=== PATIENT | male | born 1935 | race Two or more races ===

== ENCOUNTER 2018-05-30 19:20 | Inpatient (IN) | payer OTHER ==
[~2018-05-30] VITALS: Ht 177.8 cm; Wt 91.6 kg
[2018-05-30 19:41] VITALS: BP 90/60
--- NOTE | 2018-05-30 19:46 | NUR ---
PT WHEELED TO LOBBY BY FAMILY. VSS.
--- NOTE | 2018-05-30 19:51 | NUR ---
PT TO ER BED 1
[2018-05-30] MEDS ORDERED: NACL 0.9% 1,000 ML IV ONE (20:03)
[2018-05-30] MEDS ORDERED: ALBUTEROL SULFATE/IPRATROPIU 3 ML SOL IH ONE (20:05)
[2018-05-30 20:27] LABS: BASOPHILS % (AUTO) 0.4 % (0.0-2.0); EOSINOPHILS # (AUTO) 0.1 K/uL (0-0.4); EOSINOPHILS % (AUTO) 0.8 % (0.0-4.0); HEMATOCRIT 44.1 % (36-52); HEMOGLOBIN 14.8 g/dL (12.0-18.0); LYMPHOCYTES # (AUTO) 1.5 K/uL (2.0-11.5); LYMPHOCYTES % (AUTO) 15.8 % (20.5-51.1); MEAN CORPUSCULAR HEMOGLOBIN 30 pg (27-31); MEAN CORPUSCULAR HGB CONC 34 g/dL (33-37); MEAN CORPUSCULAR VOLUME 88.8 fL (80-94); MONOCYTES # (AUTO) 1.7 K/uL (0.8-1.0); MONOCYTES % (AUTO) 17.5 % (1.7-9.3); NEUTROPHILS # (AUTO) 6.4 K/uL (1.8-7.7); NEUTROPHILS % (AUTO) 65.5 % (42.2-75.2); PLATELET COUNT (AUTO) 290 K/uL (140-450); RED BLOOD CELL COUNT(AUTO) 4.97 MIL/uL (4.20-6.10); RED CELL DISTRIBUTION WIDTH 13.5 % (11.6-13.7); WHITE BLOOD COUNT (AUTO) 9.7 K/uL (4.8-10.8)
--- NOTE | 2018-05-30 20:28 | NUR ---
Influenza swab, called lab for pickup.
[2018-05-30 20:36] LABS: ANION GAP 11.6 (8-16); CARBON DIOXIDE 26.7 mmol/L (21-32); CHLORIDE 103 mmol/L (98-107); CREATININE 1.4 mg/dL (0.7-1.3); GLUCOSE 145 mg/dL (74-106); POTASSIUM 3.3 mmol/L (3.5-5.1); SODIUM SERUM 138 mmol/L (136-145); UREA NITROGEN, BLOOD 14 mg/dL (7-18)
[2018-05-30 20:59] LABS: TOTAL BILIRUBIN 1.4 mg/dL (0.0-1.0)
[2018-05-30 21:00] LABS: ALBUMIN 2.7 g/dL (3.4-5.0); ASPARTATE AMINOTRANSFERASE 17 U/L (15-37); LIPASE 108 U/L (73-393)
[2018-05-30 21:01] LABS: PROTHROMBIN TIME 10.8 secs (10.8-13.4)
[2018-05-30] MEDS ORDERED: NACL 0.9% 2,000 ML IV ONE ×2 (21:05→21:20)
[2018-05-30] MEDS ORDERED: AZITHROMYCIN 500 MG in DEXTROSE 5% 250 ML IV ONE (21:20)
[2018-05-30] MEDS ORDERED: ACETAMINOPHEN 325 MG TAB PO PRN (21:30)
[2018-05-30] MEDS ORDERED: MORPHINE SULFATE 4 MG/ML SYR IVP PRN (21:30)
[2018-05-30] MEDS ORDERED: ZOLPIDEM 5 MG TAB PO PRN (21:30)
[2018-05-30] MEDS ORDERED: DOCUSATE SODIUM 100 MG GELCAP PO PRN (21:30)
[2018-05-30] MEDS ORDERED: HYDROcodone/APAP 5/325 MG 1 TAB TAB PO PRN (21:30)
[2018-05-30] MEDS ORDERED: ONDANSETRON 4 MG/2 ML VIAL IM/IVP PRN (21:30)
[2018-05-30] MEDS ORDERED: LORazepam 2 MG/ML VIAL IM/IVP PRN (21:30)
[2018-05-30] MEDS ORDERED: cefTRIAXone 1,000 MG VIAL ONE (21:35)
[2018-05-30] MEDS ORDERED: AZITHROMYCIN 500 MG INJ VIAL IV ONE (21:35)
[2018-05-30 21:47] LABS: APPEARANCE,URINE HAZY (CLEAR); COLOR,URINE YELLOW (YELLOW); UGLUCOSE NEGATIVE (NEGATIVE)
[2018-05-30] MEDS ORDERED: TAMS0.4C96 PO (21:47)
[2018-05-30] MEDS ORDERED: RIVA15TA1 PO (21:47)
[2018-05-30] MEDS ORDERED: ATOR10TA PO (21:47)
[2018-05-30 21:48] LABS: BILIRUBIN,URINE NEGATIVE (NEGATIVE); BLOOD, URINE TRACE (NEGATIVE); LEUKOCYTE ESTERASE ,URINE NEGATIVE (NEGATIVE); NITRITE, URINE NEGATIVE (NEGATIVE)
[2018-05-30 21:56] LABS: BARBITURATE, URINE NEG. ng/ml (NEG <=200); BENZODIAZEPINE, URINE NEG. ng/mL (NEG <=200); CANNABINOID, URINE NEG. ng/mL (NEG <=50); COCAINE, URINE NEG. ng/mL (NEG <=300); OPIATE, URINE NEG. ng/mL (NEG <=2000); PHENCYCLIDINE SCREEN,URINE NEG. ng/mL (NEG <=25)
[2018-05-30 22:05] LABS: CHOL/HDL RATIO 3.3 (1-4.5); FREE T4 (FREE THYROXINE) 1.19 ng/dL (0.76-1.46); MAGNESIUM 1.8 mg/dL (1.8-2.4); PHOSPHORUS 3.3 mg/dL (2.5-4.9); THYROID STIMULATING HORMONE 2.27 uIU/mL (0.34-3.74)
--- NOTE | 2018-05-30 22:10 | NUR ---
Pt report given to CARRIE. Transfer of care at this time.
[2018-05-30 22:15] VITALS: BP 115/58
--- NOTE | 2018-05-30 22:15 | NUR ---
RECEIVED BEDSIDE REPORT FROM EXTRUDER TENDER. PT IS AWAKE. A&O TO PERSON. ON NC 2L. SPEECH IS SLURRED. RECEIVED HX FROM FAMILY.PT WITH IV ON L AC 20G INFUSING ANTIBIOTIC. SKIN IS INTACT. PER PT EATS REGULAR FOOD AND IS ABLE TO SWALLOW. SHE CHOPS FOOD INTO SMALL BITES. VS ARE STABLE. PT WITH NON PRODUCTIVE COUGH. DX PNA. WILL FOLLOW UP WITH ORDERS. SAFETY MEASURES ARE IN PLACE. CALL LIGHT WITHIN REACH.
[2018-05-30] MEDS: NACL 0.9% 1,000 ML IV SCH (23:19)
--- NOTE | 2018-05-30 23:19 | NUR ---
IVF INFUSING PER ORDERS. VS ARE WITHIN NORMAL LIMITS. CALL LIGHT WITHIN REACH
[2018-05-30] MEDS ORDERED: POTASSIUM CHLORIDE 20% 40 MEQ/15 ML UDC PO SCH (23:30)
[2018-05-31] VITALS: BP 111/56
--- NOTE | 2018-05-31 01:01 | NUR ---
PT RESTING COMFORTABLY IN BED. NO S/S OF DISTRESS CALL LIGHT WITHIN REACH.
[2018-05-31] MEDS ORDERED: PNEUMOCOCCAL VACCINE 23 MCG/0.5 ML VIAL IMVAC PRN (01:10)
--- NOTE | 2018-05-31 03:14 | NUR ---
PT RESTING COMFORTABLY IN BED. RESPIRATIONS ARE EQUAL AND UNLABORED. CALL LIGHT WITHIN REACH.
--- NOTE | 2018-05-31 05:15 | NUR ---
PT SLEEPING COMFORTABLY IN BED. NO S/S OF DISTRESS. CALL LIGHT WITHIN NORMAL RANGE.
[2018-05-31 06:27] LABS: BASOPHILS % (AUTO) 0.3 % (0.0-2.0); EOSINOPHILS # (AUTO) 0.1 K/uL (0-0.4); EOSINOPHILS % (AUTO) 0.9 % (0.0-4.0); HEMATOCRIT 38.3 % (36-52); HEMOGLOBIN 12.8 g/dL (12.0-18.0); LYMPHOCYTES # (AUTO) 1.1 K/uL (2.0-11.5); LYMPHOCYTES % (AUTO) 14.1 % (20.5-51.1); MEAN CORPUSCULAR HEMOGLOBIN 30 pg (27-31); MEAN CORPUSCULAR HGB CONC 34 g/dL (33-37); MEAN CORPUSCULAR VOLUME 89.1 fL (80-94); MONOCYTES # (AUTO) 1.5 K/uL (0.8-1.0); MONOCYTES % (AUTO) 19.4 % (1.7-9.3); NEUTROPHILS # (AUTO) 5.1 K/uL (1.8-7.7); NEUTROPHILS % (AUTO) 65.3 % (42.2-75.2); PLATELET COUNT (AUTO) 244 K/uL (140-450); RED BLOOD CELL COUNT(AUTO) 4.29 MIL/uL (4.20-6.10); RED CELL DISTRIBUTION WIDTH 13.6 % (11.6-13.7); WHITE BLOOD COUNT (AUTO) 7.8 K/uL (4.8-10.8)
[2018-05-31] MEDS ORDERED: MORPHINE SULFATE 2 MG/ML SYR IVP PRN (06:57)
--- NOTE | 2018-05-31 07:10 | NUR ---
ENDORSED PT TO DAY SHIFT RN. PT IN STABLE CONDITION.
--- NOTE | 2018-05-31 07:15 | NUR ---
RECEIVED BEDSIDE REPORT FROM ANIMAL REHABILITATOR RN. PT IS AWAKE IN BED. SPEECH IS GARBLED. PT HAS BROCA'S APHASIA. ABLE TO FOLLOW COMMANDS. ANIMAL REHABILITATOR RN HAS EXPLAINED PROCESS TO OBTAIN SPUTUM SAMPLE. LUNG SOUNDS DIMINISHED. SATURATING WELL ON 2L NC. SKIN INTACT. IV SITE PATENT AND ASYMPTOMATIC, INFUSING IVF PER MD ORDERS. ALL SAFETY PRECAUTIONS IN PLACE, WILL CONTINUE TO MONITOR.
--- NOTE | 2018-05-31 07:42 | NUR ---
RECEIVED PATIENT ON 2L NC. PULSE OX SAT 93%, HEART RATE 95. NO SOB. NO HHN INDICATED AT THIS TIME. WILL CONTINUE TO MONITOR.
[2018-05-31 07:51] LABS: ANION GAP 13.7 (8-16); CARBON DIOXIDE 25.4 mmol/L (21-32); CHLORIDE 106 mmol/L (98-107); CREATININE 1.1 mg/dL (0.7-1.3); GLUCOSE 112 mg/dL (74-106); POTASSIUM 4.1 mmol/L (3.5-5.1); SODIUM SERUM 141 mmol/L (136-145); UREA NITROGEN, BLOOD 13 mg/dL (7-18)
[2018-05-31 07:53] LABS: MAGNESIUM 1.8 mg/dL (1.8-2.4); PHOSPHORUS 2.3 mg/dL (2.5-4.9)
[2018-05-31 08:00] VITALS: BP 132/74
--- NOTE | 2018-05-31 08:04 | NUR ---
PATIENT HAS BEEN SCREENED AND CATEGORIZED HIGH NUTRITION RISK. PATIENT WILL BE SEEN WITHIN 1-2 DAYS OF ADMISSION. 05/31/18-06/01/[address]
[2018-05-31] MEDS: ATORVASTATIN 20 MG TAB PO SCH (09:45)
[2018-05-31] MEDS: LACTOBACILLUS RHAMNOSUS GG 1 EACH CAP PO SCH (09:45)
[2018-05-31] MEDS: TAMSULOSIN 0.4 MG CAP PO SCH (09:45)
[2018-05-31] MEDS: RIVAROXABAN 15 MG TAB PO SCH (09:46)
--- NOTE | 2018-05-31 11:46 | NUR ---
05/31/18 RD INITIAL ASSESSMENT COMPLETED PLEASE REFER TO NUTRITION ASSESSMENT UNDER CARE ACTIVITY FOR ESTIMATED NUTRITIONAL NEEDS. 1. CONTINUE REGULAR MECHANICAL SOFT DIET TOLERATED 2. RD TO RECOMMEND HEALTH SHAKE BID TO MEET ADEQUATE ENERGY NEEDS 3. RD TO FOLLOW UP ON ADEQUATE PO INTAKE 4. RD TO FOLLOW-UP 2-3 DAYS, HIGH RISK MARY GRACE TRACY, RD
[2018-05-31] MEDS: NACL 0.9% 1,000 ML IV SCH ×2 (12:20→17:02)
[2018-05-31] MEDS: PIPER/TAZO 3.375GM/D5W PREMIX 50 ML IV SCH ×2 (12:21→17:03)
--- NOTE | 2018-05-31 15:40 | NUR ---
NOTIFIED DR. CHEN THAT RT INDUCED SPUTUM ORDER MAY NEED TO BE PLACED BECAUSE PT IS UNABLE TO EXPECTORATE SPUTUM HIMSELF.
--- NOTE | 2018-05-31 15:50 | NUR ---
NOTIFIED RT OF SPUTUM INDUCTION ORDER. RT AWARE.
[2018-05-31 16:00] VITALS: BP 129/71
[2018-05-31] MEDS: ALBUTEROL SULFATE/IPRATROPIU 3 ML SOL IH PRN (19:14)
--- NOTE | 2018-05-31 19:14 | NUR ---
ENDORSED POC TO INSIGHTS MANAGER RN. PT IN STABLE CONDITION.
--- NOTE | 2018-05-31 19:15 | NUR ---
RECEIVED REPORT FROM DAY SHIFT NURSE FANNIE-RN AT BEDSIDE. PT RESTING IN BED WITH FAMILY AT BEDSIDE. AOX4 WITH EXPRESSIVE APHASIA- WILL SIGN THUMBS UP FOR GOOD AND INDEX FINGER FOR BAD. ON 2L/NC WITH IV SITE ON LEFT AC #20G RUNNING NS @ 60ML/HR. DISCUSSED PLAN OF CARE WITH PT AND FAMILY AND FAMILY VERBALIZED UNDERSTANDING. BED IN LOWEST POSITION, BED BREAKS ON, BOTH SIDE RAILS UP AND BOTH FALL AND ASPIRATION PRECAUTIONS IN PLACE. BEDSIDE TABLE AND CALL LIGHT ARE WITHIN REACH. WILL CONTINUE TO MONITOR.
--- NOTE | 2018-05-31 19:57 | NUR ---
* ST NOTE * Pt seen at bedside w/, ex daughter in law & nsg present. Pt consenting to evaluation w/family present. Pt alert, cooperative & engaged throughout session, reporting no c/o pain at this time. Bedside dysphagia and oral mechanism exams completed. See evaluation report for further details. Pt tolerating 4/4 alternating PO trials of regular solid saltine crackers as well as 6/6 alternating PO trials of thin liquid apple juice via a straw, all w/o s/s of aspiration or choking. Pt and caregivers/family education completed re: aspiration precautions and safe swallow compensatory strategies pt and family could utilize to aid pt w/swallow function, w/pt nodding, and caregivers/family verbalizing understanding and agreement w/clinician's recommendations. 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 No further ST follow up recommended at this time. Pt, caregiver/ and caregiver/Nsg education completed re: results of evaluation; benefits of abiding by aspiration precautions and recommended PO diet consistency; and prognosis for improvement; with pt nodding and caregiver/ and caregiver/nsg verbalizing understanding and agreement w/clinician's recommendations. Recommend: - CONTINUE PO DIET CONSISTENCY OF MECHANICAL SOFT TEXTURES W/THIN LIQUIDS for all meals - WHOLE PILL PO MEDICATION ADMINISTRATION - Maintain STRICT ASPIRATION PRECAUTIONS DURING PT'S PO INTAKE 2/2 to pt's Dx of PNA - Pt requires assistance w/feeding - Feeder to SIT PT UP AT 80-90 DEGREE ANGLE DURING PO INTAKE, FEED PT SLOWLY, ALTERNATING BTWN SOLIDS & LIQUIDS, AND UTILIZING SMALL BITES/SIPS No further ST follow up recommended at this time. NOMS Level 2
[2018-05-31 20:00] VITALS: BP 135/62
--- NOTE | 2018-05-31 20:00 | NUR ---
VITAL SIGNS TAKEN AND TOLERATED WELL. NO S/S OF RESPIRATORY DISTRESS OR DISCOMFORT NOTED AT THIS TIME. WILL CONTINUE TO MONITOR.
--- NOTE | 2018-05-31 20:41 | NUR ---
SCHEDULED MEDICATION AZITHROMAX GIVEN AND TOLERATED WELL. NO S/S OF RESPIRATORY DISTRESS OR DISCOMFORT NOTED AT THIS TIME. WILL CONTINUE TO MONITOR.
[2018-05-31] MEDS ORDERED: AZITHROMYCIN 250 MG TAB PO SCH (21:00)
--- NOTE | 2018-05-31 22:14 | NUR ---
ENDORSED PT CARE TO SKEIN DRIER NURSE JURGEN FOR CONTINUITY OF CARE.
--- NOTE | 2018-05-31 22:15 | NUR ---
Patient's Plan of Care was discussed and reviewed with LAWRENCE: MARY
--- NOTE | 2018-05-31 22:15 | NUR ---
RECD. PATIENT FOR CONTINUITY OF CARE RESTING IN BED, AWAKE, A/OX3. IV OF NS AT 60 ML/HR INFUSING, LEFT AC G20. ON 02 AT 2 LITERS VIA N/C. RESPIRATION EVEN AND UNLABORED. NOTED OCCASIONAL UNPRODUCTIVE COUGHING. SAFETY MEASURES ENFORCED. INCONTINENT. REPOSITIONED IN BED WITH PILLOWS. DENIES PAIN 0/10.
--- NOTE | 2018-05-31 23:00 | NUR ---
INSTRUCTED PATIENT TO TRY TO EXPECTORATE PHLEGM FOR SPUTUM TEST. UNABLE TO UNDERSTAND, CONFUSED. REORIENTED TO HOSPITAL SETTING.
[2018-06-01] VITALS: BP 110/59
--- NOTE | 2018-06-01 00:30 | NUR ---
SLEEPING COMFORTABLY IN BED.
[2018-06-01] MEDS: PIPER/TAZO 3.375GM/D5W PREMIX 50 ML IV SCH ×4 (01:30→17:33)
--- NOTE | 2018-06-01 04:00 | NUR ---
STILL SLEEPING COMFORTABLY IN BED.
[2018-06-01 06:36] LABS: BASOPHILS % (AUTO) 0.4 % (0.0-2.0); EOSINOPHILS # (AUTO) 0.2 K/uL (0-0.4); EOSINOPHILS % (AUTO) 1.6 % (0.0-4.0); HEMATOCRIT 36.6 % (36-52); HEMOGLOBIN 12.1 g/dL (12.0-18.0); LYMPHOCYTES # (AUTO) 1.5 K/uL (2.0-11.5); LYMPHOCYTES % (AUTO) 14.6 % (20.5-51.1); MEAN CORPUSCULAR HEMOGLOBIN 29 pg (27-31); MEAN CORPUSCULAR HGB CONC 33 g/dL (33-37); MEAN CORPUSCULAR VOLUME 88.3 fL (80-94); MONOCYTES # (AUTO) 1.6 K/uL (0.8-1.0); MONOCYTES % (AUTO) 16.1 % (1.7-9.3); NEUTROPHILS # (AUTO) 6.9 K/uL (1.8-7.7); NEUTROPHILS % (AUTO) 67.3 % (42.2-75.2); PLATELET COUNT (AUTO) 255 K/uL (140-450); RED BLOOD CELL COUNT(AUTO) 4.15 MIL/uL (4.20-6.10); RED CELL DISTRIBUTION WIDTH 13.4 % (11.6-13.7); WHITE BLOOD COUNT (AUTO) 10.2 K/uL (4.8-10.8)
[2018-06-01 06:59] LABS: ANION GAP 11.9 (8-16); CARBON DIOXIDE 25.3 mmol/L (21-32); CHLORIDE 105 mmol/L (98-107); CREATININE 1.1 mg/dL (0.7-1.3); GLUCOSE 107 mg/dL (74-106); POTASSIUM 3.2 mmol/L (3.5-5.1); SODIUM SERUM 139 mmol/L (136-145); UREA NITROGEN, BLOOD 13 mg/dL (7-18)
--- NOTE | 2018-06-01 07:10 | NUR ---
PT REPORT RECEIVED FROM CHILD SUPPORT CASE OFFICER NURSE. PT IS AWAKE IN BED, APHASIC, UNABLE TO MAKE VERBAL EXPRESSION KNOWN. PT HAS WEAKNESS OF THE R SIDE DUE TO CVA. PT IS ON 2L O2 NC. SKIN IS INTACT. PT IS INCONTINENT X 2. IV SITE NOTED ON THE L AC, 20 G, INFUSING NS 60 ML/HR. PT COUGHING INTERMITTENTLY. FALL RISK AND ASPIRATION PRECAUTIONS ARE IN PLACE. CALL LIGHT WITHIN REACH. WILL CONT TO MONITOR.
--- NOTE | 2018-06-01 07:30 | NUR ---
CONDITION REMAIN STABLE. ENDORSED TO AM NURSE FOR CONTINUITY OF CARE.
[2018-06-01] MEDS: ALBUTEROL SULFATE/IPRATROPIU 3 ML SOL IH PRN (07:39)
[2018-06-01 08:00] VITALS: BP 121/66
--- NOTE | 2018-06-01 08:00 | NUR ---
SPUTUM SAMPLE WAS COLLECTED AND SENT TO LAB
[2018-06-01] MEDS: RIVAROXABAN 15 MG TAB PO SCH (09:00)
[2018-06-01] MEDS: LACTOBACILLUS RHAMNOSUS GG 1 EACH CAP PO SCH (10:05)
[2018-06-01] MEDS: TAMSULOSIN 0.4 MG CAP PO SCH (10:05)
[2018-06-01] MEDS: ATORVASTATIN 20 MG TAB PO SCH (10:05)
--- NOTE | 2018-06-01 12:03 | NUR ---
FA[place]ED INQUIR[place] TO [facility] [place] [facility] [place] [phone]
--- NOTE | 2018-06-01 12:17 | NUR ---
SPOKE WITH UMESH FROM [facility]. WHEN PATIENT GOES TO SNF, AUTH FOR TRANSPORT IS [id number], [facility].
[2018-06-01] MEDS ORDERED: POTASSIUM CHLORIDE 10 MEQ TABER PO SCH (12:30)
--- NOTE | 2018-06-01 14:04 | NUR ---
PT COMFORTABLE IN BED, TOOK ALL HIS SCHEDULED MEDS, TOLERATED WELL. CALL LIGHT WITHIN REACH, WILL CONT TO MONITOR.
--- NOTE | 2018-06-01 14:51 | NUR ---
PER NELI AT [facility], PATIENT CAN GO TO ROOM [address] UNDER DR[address] BRANDON. PLAN DISCHARGE MONDAY. AUTH FROM [facility] [id number].
[2018-06-01 16:00] VITALS: BP 133/61
--- NOTE | 2018-06-01 17:50 | NUR ---
PT HAD LARGE BM. PT CLEANED, CHANGED, AND REPOSITIONED, TOLERATED WELL. IV IS INFUSING WELL, PATENT AND INTACT. NO S/S OF DISTRESS OR SOB THIS EVENING. CALL LIGHT IS WITHIN REACH. WILL CONT TO MONITOR.
--- NOTE | 2018-06-01 19:10 | NUR ---
RECEIVED REPORT FROM DAY SHIFT NURSE. PT AWAKE, RESTING IN BED. NO S/S OF PAIN OR SOB. ON O2 AT 2L/MIN VIA AC. PT HAS EXPRESSIVE APHASIA BUT ABLE TO MAKE NEEDS KNOWN BY HAND GESTURES. PT IS BEDBOUND. SKIN INTACT. IV TO LEFT AC #20G, NS AT 60 ML/HR VIA NC. SAFETY PRECAUTION IN PLACE. CALL LIGHT WITHIN REACH.
--- NOTE | 2018-06-01 19:37 | NUR ---
PT ENDORSED TO PEN MAKER IN STABLE CONDITION
--- NOTE | 2018-06-01 21:50 | NUR ---
PT LYING IN BED, AWAKE. NO S/S OF PAIN. NO S/S OF RESP DISTRESS. PT KEPT CLEAN, DRY AND COMFORTABLE. SAFETY PRECAUTION IN PLACE.
[2018-06-02] VITALS: BP 152/67
[2018-06-02] MEDS: PIPER/TAZO 3.375GM/D5W PREMIX 50 ML IV SCH ×4 (00:13→17:03)
--- NOTE | 2018-06-02 00:15 | NUR ---
PT SLEEPING. RESP EVEN AND UNLABORED. IV ANTIBIOTIC ZOSYN GIVEN.
--- NOTE | 2018-06-02 02:32 | NUR ---
PT AWAKE. NO S/S OF PAIN. NO S/S OF RESP DISTRESS. IVF INFUSING WELL.
--- NOTE | 2018-06-02 05:00 | NUR ---
PT SLEEPING BUT WAKES EASILY. NO S/S OF PAIN OR DISCOMFORT. NO S/S OF RESP DISTRESS. AFEBRILE. PT KEPT COMFORTABLE.
--- NOTE | 2018-06-02 05:34 | NUR ---
DR. KNOX MADE AWARE OF PT'S SCROTAL REDNESS. MD WILL SEE PT.
--- NOTE | 2018-06-02 05:45 | NUR ---
PT WAS CLEANED AND CHANGED. TURNED AND REPOSITIONED Q2HRS. PICTURE TAKEN SCROTAL REDNESS.
[2018-06-02] MEDS ORDERED: SODIUM PHOS / POTASSIUM PHOS 1 PKT PDR PO SCH (06:45)
[2018-06-02] MEDS ORDERED: POTASSIUM CHLORIDE 10 MEQ TABER PO SCH (06:45)
--- NOTE | 2018-06-02 07:05 | NUR ---
ENDORSED PT TO DAY SHIFT NURSE. PT IN STABLE CONDITION.
--- NOTE | 2018-06-02 07:15 | NUR ---
REPORT RECEIVED FROM SYRUP SHED SUPERVISOR NURSE AT BEDSIDE. PT IS AWAKE IN BED, NO S/S OF ACUTE DISTRESS OR SOB. PT IS ON 2L O2 NC. SKIN IS INTACT. IV SITE ON THE LAC, 20 G, INFUSING NS 10 ML/HR (TKO). R SIDED WEAKNESS NOTED DUE TO CVA. FALL PRECAUTIONS IN PLACE. CALL LIGHT WITHIN REACH. WILL CONT TO MONITOR.
--- NOTE | 2018-06-02 07:16 | NUR ---
RT OBTAINED A NEW SPUTUM SAMPLE AND SENT TO LAB.
[2018-06-02 08:00] VITALS: BP 124/68
--- NOTE | 2018-06-02 10:00 | NUR ---
PT CLEANED AND REPOSITIONED. HYDRAGUARD APPLIED TO AREAS OF SKIN REDNESS. PT TOLERATED WELL.
[2018-06-02] MEDS: ATORVASTATIN 20 MG TAB PO SCH (10:13)
[2018-06-02] MEDS: RIVAROXABAN 15 MG TAB PO SCH (10:13)
[2018-06-02] MEDS: TAMSULOSIN 0.4 MG CAP PO SCH (10:14)
[2018-06-02] MEDS: LACTOBACILLUS RHAMNOSUS GG 1 EACH CAP PO SCH (10:14)
[2018-06-02] MEDS: HYDRAGUARD CREAM TP SCH (13:00)
--- NOTE | 2018-06-02 13:40 | NUR ---
CALLED LAB TO FIND OUT WHY LABS WEREN'T DRAWN THIS AM, AND ASKED MEDICAL TRANSLATOR TO COME DRAW ORDERED LABS.
[2018-06-02 16:00] VITALS: BP 132/62
--- NOTE | 2018-06-02 16:17 | NUR ---
CALLED LAB AGAIN TO ASK TO COME DRAW BLOOD FOR PT, SINCE IT WASN'T DRAWN EARLIER. LEATHER LACER CONFIRMED THAT LABS WEREN'T DRAWN ON PT THIS MORNING. LEATHER LACER SAYS SHE WILL COME DOWN TO DRAW LABS RIGHT NOW.
[2018-06-02 16:39] LABS: BASOPHILS % (AUTO) 0.4 % (0.0-2.0); EOSINOPHILS # (AUTO) 0.3 K/uL (0-0.4); EOSINOPHILS % (AUTO) 2.6 % (0.0-4.0); HEMATOCRIT 38.2 % (36-52); HEMOGLOBIN 12.5 g/dL (12.0-18.0); LYMPHOCYTES # (AUTO) 1.1 K/uL (2.0-11.5); LYMPHOCYTES % (AUTO) 9.8 % (20.5-51.1); MEAN CORPUSCULAR HEMOGLOBIN 29 pg (27-31); MEAN CORPUSCULAR HGB CONC 33 g/dL (33-37); MEAN CORPUSCULAR VOLUME 88.4 fL (80-94); MONOCYTES # (AUTO) 1.3 K/uL (0.8-1.0); MONOCYTES % (AUTO) 11.4 % (1.7-9.3); NEUTROPHILS # (AUTO) 8.9 K/uL (1.8-7.7); NEUTROPHILS % (AUTO) 75.8 % (42.2-75.2); PLATELET COUNT (AUTO) 309 K/uL (140-450); RED BLOOD CELL COUNT(AUTO) 4.32 MIL/uL (4.20-6.10); RED CELL DISTRIBUTION WIDTH 13.7 % (11.6-13.7); WHITE BLOOD COUNT (AUTO) 11.7 K/uL (4.8-10.8)
[2018-06-02 16:59] LABS: ANION GAP 2.4 (8-16); CHLORIDE 114 mmol/L (98-107); CREATININE 1.1 mg/dL (0.7-1.3); GLUCOSE 128 mg/dL (74-106); POTASSIUM 3.4 mmol/L (3.5-5.1); SODIUM SERUM 140 mmol/L (136-145); UREA NITROGEN, BLOOD 17 mg/dL (7-18)
[2018-06-02] MEDS ORDERED: POTASSIUM CHLORIDE 10 MEQ TABER PO ONE (18:40)
--- NOTE | 2018-06-02 19:14 | NUR ---
PT ENDORSED TO RODENT CONTROL WORKER IN STABLE CONDITION
--- NOTE | 2018-06-02 19:15 | NUR ---
RECD. RESTING IN BED, AWAKE, A/OX2, WATCHING TV. WITH EXPRESSIVE APHASIA, ABLE TO FOLLOW SOME COMMANDS AND POINT TO THINGS TO VERBALIZED NEEDS. RESPIRATION EVEN AND UNLABORED. ON 02 AT 2 LITERS VIA N/C, 02 SAT - 95%. IV OF NS AT 10 ML/HR INFUSING, LEFT AC G20. PLAN OF CARE FOR THE SHIFT DISCUSSED. JUST UTTERED SOME INCOMPREHENSIBLE WORDS. NO APPEARANCE OF PAIN NOTED 0/10.
--- NOTE | 2018-06-02 19:17 | NUR ---
Patient's Plan of Care was discussed and reviewed with BILLING AND ACCOUNTING STAFF ASSISTANT: LEILA
--- NOTE | 2018-06-02 20:28 | NUR ---
K LEVEL - 3.4, MEDICATED WITH K-DUR 40 MEQ PO, GIVEN WITH APPLE SAUCE. TOLERATED WELL.
--- NOTE | 2018-06-02 22:00 | NUR ---
SLEEPING COMFORTABLY IN BED.
[2018-06-03] VITALS: BP 122/68
[2018-06-03] MEDS: PIPER/TAZO 3.375GM/D5W PREMIX 50 ML IV SCH ×4 (00:49→18:05)
[2018-06-03] MEDS: HYDRAGUARD CREAM TP SCH ×2 (01:05→12:11)
--- NOTE | 2018-06-03 06:00 | NUR ---
AWAKE, REQUESTED FOR WATER. ABLE TO DRINK FROM CUP, WITHOUT S/S OF ASPIRATION.
[2018-06-03] MEDS ORDERED: Hydraguard TP (07:14)
[2018-06-03] MEDS ORDERED: LACT10CA1 PO (07:14)
[2018-06-03] MEDS ORDERED: PIPE1PDS26 IV (07:14)
--- NOTE | 2018-06-03 07:20 | NUR ---
CONDITION REMAIN STABLE. ENDORSED TO AM NURSE FOR CONTINUITY OF CARE.
[2018-06-03 07:22] LABS: BASOPHILS # (AUTO) 0.1 K/uL (0.00-0.22); BASOPHILS % (AUTO) 0.4 % (0.0-2.0); EOSINOPHILS # (AUTO) 0.6 K/uL (0-0.4); EOSINOPHILS % (AUTO) 4.3 % (0.0-4.0); HEMATOCRIT 37.3 % (36-52); HEMOGLOBIN 12.4 g/dL (12.0-18.0); LYMPHOCYTES # (AUTO) 1.2 K/uL (2.0-11.5); LYMPHOCYTES % (AUTO) 8.3 % (20.5-51.1); MEAN CORPUSCULAR HEMOGLOBIN 29 pg (27-31); MEAN CORPUSCULAR HGB CONC 33 g/dL (33-37); MEAN CORPUSCULAR VOLUME 88.3 fL (80-94); MONOCYTES # (AUTO) 1.2 K/uL (0.8-1.0); MONOCYTES % (AUTO) 8.6 % (1.7-9.3); NEUTROPHILS # (AUTO) 11.1 K/uL (1.8-7.7); NEUTROPHILS % (AUTO) 78.4 % (42.2-75.2); PLATELET COUNT (AUTO) 311 K/uL (140-450); RED BLOOD CELL COUNT(AUTO) 4.22 MIL/uL (4.20-6.10); RED CELL DISTRIBUTION WIDTH 13.9 % (11.6-13.7); WHITE BLOOD COUNT (AUTO) 14.1 K/uL (4.8-10.8)
--- NOTE | 2018-06-03 07:23 | NUR ---
RECEIVED BEDSIDE REPORT FROM ELECTRIC SERVICEMAN NURSE. PATIENT IS AOX2. AND RESTING IN BED AT THIS TIME. EXPRESSIVE APHASIA, ABLE TO FOLLOW SOME COMMANDS AND POINT TO THINGS TO VERBALIZED NEEDS. RESPIRATION EVEN AND UNLABORED. ON 02 AT 2 LITERS VIA N/C, 02 SAT - 94%. IV OF NS AT 10 ML/HR INFUSING, LEFT AC G20. IV SITE IS CLEAN, INTACT, AND DRY. PLAN OF CARE FOR THE SHIFT DISCUSSED. NO APPEARANCE OF PAIN NOTED. BED IN LOW POSITION, AND CALL LIGHT WITHIN REACH. SAFETY MEASURES ARE IN PLACE. WILL CONTINUE TO MONITOR.
[2018-06-03 07:56] LABS: ANION GAP 10.9 (8-16); CARBON DIOXIDE 25.6 mmol/L (21-32); CHLORIDE 109 mmol/L (98-107); CREATININE 1.1 mg/dL (0.7-1.3); GLUCOSE 105 mg/dL (74-106); POTASSIUM 3.5 mmol/L (3.5-5.1); SODIUM SERUM 142 mmol/L (136-145); UREA NITROGEN, BLOOD 17 mg/dL (7-18)
[2018-06-03 08:00] VITALS: BP 124/70
[2018-06-03 08:13] LABS: MAGNESIUM 2.2 mg/dL (1.8-2.4); PHOSPHORUS 3.3 mg/dL (2.5-4.9)
[2018-06-03] MEDS: LACTOBACILLUS RHAMNOSUS GG 1 EACH CAP PO SCH (09:07)
[2018-06-03] MEDS: TAMSULOSIN 0.4 MG CAP PO SCH (09:07)
[2018-06-03] MEDS: ATORVASTATIN 20 MG TAB PO SCH (09:08)
[2018-06-03] MEDS: RIVAROXABAN 15 MG TAB PO SCH (09:12)
--- NOTE | 2018-06-03 09:15 | NUR ---
06/03/18 RD FOLLOW UP COMPLETED PLEASE REFER TO NUTRITION PROGRESS NOTE UNDER CARE ACTIVITY FOR ESTIMATED NUTRITION NEEDS. RD RECOMMENDATIONS: 1. CONTINUE REGULAR MECHANICAL SOFT DIET TOLERATED. 2. CONTINUE HEALTH SHAKE BID TO MEET ADEQUATE ENERGY NEEDS. 3. RDN AND NURSING STAFF TO CONTINUE TO ENCOURAGED PO INTAKES. 4. RD TO FOLLOW-UP 2-3 DAYS, HIGH RISK. BLACK VALERO MS, RDN
--- NOTE | 2018-06-03 09:18 | NUR ---
ADMINISTERED MEDS PER ORDER. PATIENT SWALLOWED WELL. D/C NC PER ORDER. SPO2 92%, WILL MONITOR PATIENT'S O2.
--- NOTE | 2018-06-03 10:00 | NUR ---
ASSISTED NEWSPAPER EDITOR MANAGING TO CLEAN AND REPOSITION PATIENT. NOTICED RASH ON RIGHT SIDE OF BACK AND RIGHT THIGH AREAS. PATIENT DENIES OF ANY ITCHINESS. MD NOTIFIED. APPLIED HYDRAGUARD PER MD ORDER.
[2018-06-03] MEDS: NACL 0.9% 1,000 ML IV SCH ×3 (11:09→20:45)
[2018-06-03 13:27] LABS: BASOPHILS # (AUTO) 0.1 K/uL (0.00-0.22); BASOPHILS % (AUTO) 0.5 % (0.0-2.0); EOSINOPHILS # (AUTO) 0.6 K/uL (0-0.4); EOSINOPHILS % (AUTO) 3.5 % (0.0-4.0); HEMATOCRIT 38.5 % (36-52); HEMOGLOBIN 12.6 g/dL (12.0-18.0); LYMPHOCYTES # (AUTO) 1.6 K/uL (2.0-11.5); LYMPHOCYTES % (AUTO) 10.1 % (20.5-51.1); MEAN CORPUSCULAR HEMOGLOBIN 29 pg (27-31); MEAN CORPUSCULAR HGB CONC 33 g/dL (33-37); MEAN CORPUSCULAR VOLUME 88.5 fL (80-94); MONOCYTES % (AUTO) 6.3 % (1.7-9.3); NEUTROPHILS # (AUTO) 12.5 K/uL (1.8-7.7); NEUTROPHILS % (AUTO) 79.6 % (42.2-75.2); PLATELET COUNT (AUTO) 315 K/uL (140-450); RED BLOOD CELL COUNT(AUTO) 4.35 MIL/uL (4.20-6.10); RED CELL DISTRIBUTION WIDTH 13.8 % (11.6-13.7); WHITE BLOOD COUNT (AUTO) 15.7 K/uL (4.8-10.8)
[2018-06-03] MEDS ORDERED: NACL 0.9% 250 ML IV ONE (14:00)
[2018-06-03 16:00] VITALS: BP 132/56
[2018-06-03 16:01] LABS: BASOPHILS # (AUTO) 0.1 K/uL (0.00-0.22); BASOPHILS % (AUTO) 0.4 % (0.0-2.0); EOSINOPHILS # (AUTO) 0.6 K/uL (0-0.4); EOSINOPHILS % (AUTO) 3.9 % (0.0-4.0); HEMATOCRIT 36.7 % (36-52); HEMOGLOBIN 11.9 g/dL (12.0-18.0); LYMPHOCYTES # (AUTO) 1.4 K/uL (2.0-11.5); LYMPHOCYTES % (AUTO) 9.6 % (20.5-51.1); MEAN CORPUSCULAR HEMOGLOBIN 29 pg (27-31); MEAN CORPUSCULAR HGB CONC 33 g/dL (33-37); MEAN CORPUSCULAR VOLUME 89.2 fL (80-94); MONOCYTES # (AUTO) 1.1 K/uL (0.8-1.0); MONOCYTES % (AUTO) 7.8 % (1.7-9.3); NEUTROPHILS # (AUTO) 11.5 K/uL (1.8-7.7); NEUTROPHILS % (AUTO) 78.3 % (42.2-75.2); PLATELET COUNT (AUTO) 309 K/uL (140-450); RED BLOOD CELL COUNT(AUTO) 4.11 MIL/uL (4.20-6.10); RED CELL DISTRIBUTION WIDTH 13.9 % (11.6-13.7); WHITE BLOOD COUNT (AUTO) 14.7 K/uL (4.8-10.8)
--- NOTE | 2018-06-03 17:00 | NUR ---
DISCHARGE INSTRUCTIONS GIVEN TO PATIENT, PREFERRED LANGUAGE SYRIAC. PATIENT UNABLE TO COMPREHEND AND SIGN. WILL GIVE REPORT TO CEC NURSE.
--- NOTE | 2018-06-03 17:15 | NUR ---
CALLED [facility] AND SPOKE TO THE NURSE VILLEDA ON REGARDS OF PATIENT IS GOING TO BE TRANSFERRED AT 1999. GAVE FULL REPORT ON PATIENT'S PLAN OF CARE. INFORMED THAT PATIENT WILL BE ON ZOSYN FOR 5 DAYS Q6H, PT IS NEEDED, AND BREATHING TREATMENT NEEDED. ANSWERED ALL OF RN QUESTIONS. RN VERBALIZED COMPLETELY UNDERSTANDING. AWAITING FOR PATIENT TO ARRIVAL. CALLED PATIENT'S CHILD RICHA AND LEFT A VOICE MESSAGE ON REGARD OF PATIENT IS GOING TO BE TRANSFERRED TO [facility] AND A CALL BACK PHONE NUMBERS IF HE HAS ANY QUESTION.
--- NOTE | 2018-06-03 18:06 | NUR ---
SCHEDULED MEDICATIONS DUE GIVEN. WILL CONTINUE TO MONITOR.
--- NOTE | 2018-06-03 19:43 | NUR ---
GAVE REPORT TO SYSTEMS ANALYST ENGINEER NURSE FOR CONTINUITY OF CARE. PATIENT IN STABLE CONDITION.
--- NOTE | 2018-06-03 19:44 | NUR ---
RECD. RESTING IN BED, AWAKE, ALERT, OX1, WITH EXPRESSIVE APHASIA. IV OF NS AT 10 ML/HR INFUSING, LEFT AC G20. ADDITIONAL DISCHARGE INSTRUCTIONS GIVEN. NEEDS REINFORCEMENT. SAFETY MEASURES ENFORCED. AWAITING FOR [facility] TO TAKE HIM TO [facility]. VS STABLE. SON AT THE BEDSIDE.
--- NOTE | 2018-06-03 20:37 | NUR ---
LAB CALLED INFORMING US THAT SPUTUM THAT WAS SENT AND TESTED WAS CONTAMINATED AND NEED TO RECOLLECT.
--- NOTE | 2018-06-03 23:30 | NUR ---
REPORT GIVEN TO [facility] PERSONNEL, PACKET GIVEN.
--- NOTE | 2018-06-03 23:37 | NUR ---
TAKEN TO HOSPITAL LOBBY PARKING VIA GURNEY IN STABLE CONDITION, ACCOMPANIED BY [facility] PERSONNEL FOR TRANSFER TO [facility].
== END 2018-06-03 23:37 | DRG 871 ==
LOC: MED 19:20 → MTU 21:43
PROVIDERS: ADMIT General Practice; ATTEND General Practice
PROC: 3E0234Z Introduction of Serum, Toxoid and Vaccine into Muscle, Percutaneous Approach (ICD-10-PCS; principal; 2018-05-31)
DX: A41.9 Sepsis, unspecified organism (principal); J69.0 Pneumonitis due to inhalation of food and vomit; N17.0 Acute kidney failure with tubular necrosis; E43 Unspecified severe protein-calorie malnutrition; I69.351 Hemiplegia and hemiparesis following cerebral infarction affecting right dominant side; E83.51 Hypocalcemia; E87.6 Hypokalemia; R31.9 Hematuria, unspecified; Z68.29 Body mass index [BMI] 29.0-29.9, adult; N40.0 Benign prostatic hyperplasia without lower urinary tract symptoms; Z74.01 Bed confinement status; Z79.899 Other long term (current) drug therapy; I69.320 Aphasia following cerebral infarction; Z23 Encounter for immunization
CPT/HCPCS: 36415; 71045; 80048; 80053; 80305; 81003; 82150; 83036; 83605; 83690; 83735; 83880; 84100; 84439; 84443; 84484; 85025; 85610; 87040; 87081; 87086; 87205; 87804; 89220; 90732; 92610; 93005; 94640; 96360; 97530; 99285; C1758; J0456; J0696; J2543; J7030; J7060; J7620; Q0092